=== PATIENT | male | born 1980 | race Caucasian/White ===

== ENCOUNTER 2018-07-18 19:10 | Emergency (ER) | payer OTHER ==
[~2018-07-18] VITALS: Ht 170.2 cm; Wt 89.0 kg
[2018-07-18 21:08] LABS: BASOPHILS % 0.7 % (0.0-2.0); EOSINOPHILS % 2.5 % (0.0-5.0); HEMATOCRIT. 47.5 % (42.0-52.0); HEMOGLOBIN. 16.4 g/dL (14.0-18.0); LYMPHOCYTES % 23.2 % (20.0-50.0); MEAN CORPUSCULAR HEMOGLOBIN 30.7 pg (28.0-32.0); MEAN CORPUSCULAR VOLUME 89.1 fL (80.0-94.0); MEAN PLATELET VOLUME 8.9 fl (7.4-10.4); MONOCYTES % 6.3 % (2.0-8.0); NEUTROPHILS % 67.3 % (40.0-76.0); PLATELET 286 x1000/uL (130-400); RED BLOOD CELL COUNT 5.33 mill/uL (4.7-6.1); RED CELL DISTRIBUTION WIDTH 13.5 % (11.6-14.6)
[2018-07-18 21:13] LABS: CHLORIDE 110 mEq/L (98-107)
[2018-07-18 21:42] LABS: CLARITY URINE CLEAR (CLEAR); COLOR URINE YELLOW (YELLOW); KETONES URINE NEGATIVE (NEGATIVE); LEUKOCYTE ESTERASE URINE NEGATIVE (NEGATIVE); NITRITE URINE NEGATIVE (NEGATIVE); OCCULT BLOOD URINE NEGATIVE (NEGATIVE); PROTEIN URINE NEGATIVE (NEGATIVE); SPECIFIC GRAVITY URINE 1.006 (1.005-1.030); UROBILINOGEN URINE 0.2 E.U./dL (0.2-1.0)
[2018-07-18 21:55] LABS: *AMPHETAMINES SCREEN URINE NEGATIVE (NEGATIVE); *BARBITURATES SCREEN URINE NEGATIVE (NEGATIVE); *BENZODIAZEPINES SCREEN URINE NEGATIVE (NEGATIVE); *COCAINE SCREEN URINE NEGATIVE (NEGATIVE); CANNABINOID URINE SCREEN NEGATIVE (NEGATIVE); METHADONE URINE SCREEN NEGATIVE (NEGATIVE); OPIATES URINE SCREEN NEGATIVE (NEGATIVE); PHENCYCLIDINE URINE SCREEN NEGATIVE (NEGATIVE)
[2018-07-18 22:41] VITALS: BP 157/84
== END 2018-07-18 22:42 | disposition home or self-care (01) ==
LOC: ER 19:10
DX: F41.9 Anxiety disorder, unspecified (principal); R00.2 Palpitations; R42 Dizziness and giddiness; D72.829 Elevated white blood cell count, unspecified; E86.0 Dehydration; R74.0 Nonspecific elevation of levels of transaminase and lactic acid dehydrogenase [LDH]; J06.9 Acute upper respiratory infection, unspecified
CPT/HCPCS: 36415; 71045; 80305; 83735; 83880; 84484; 93005; 99285

== ENCOUNTER 2019-04-09 13:44 | Emergency (ER) | payer OTHER ==
[~2019-04-09] VITALS: Ht 177.8 cm; Wt 82.0 kg
[2019-04-09 16:53] VITALS: BP 149/91
== END 2019-04-09 17:00 | disposition home or self-care (01) ==
LOC: ER 13:44
DX: R00.2 Palpitations (principal); F41.9 Anxiety disorder, unspecified
CPT/HCPCS: 71045; 93005; 99283